=== PATIENT | male | born 1990 | race Caucasian/White ===

== ENCOUNTER 2016-12-04 11:49 | Emergency (ER) | payer SELFPAY ==
[~2016-12-04] VITALS: Ht 175.3 cm; Wt 86.2 kg
[~2016-12-04 11:49] MED LIST: AMOX500C2 PO; ANTI15DR4 LEFT EAR
--- NOTE | 2016-12-04 14:14 | ED Back Pain ---
General Chief Complaint: Back Problems Stated Complaint: BACK PAIN Nursing Triage Note: PT STATES HE HAS STARTED A DIFFERENT POSITION AT [employer] AND THIS PARTICULAR POSITION IS CAUSING HIM UPPER BACK PAIN. THEY WILL NOT LET HIM CHANGE WITHOUT A DR'S NOTE. PAIN IS ONLY HAPPENING WHILE HE IS A WORK. Nursing Sepsis Screen: No Definite Risk Source of Information: Patient Exam Limitations: No Limitations History of Present Illness Time Seen by Provider: 14:10 Initial Comments The patient is a 26 year-old white male who presents today with a complaint of back pain. The patient reports that he works at [employer]. He has been there for a month or slightly more. 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 This is caused him every day pain which is in the area of the left medial scapula. Timing/Duration: 1 Week Pain/Injury Location: Chest Method of Injury: Other Associated Symptoms: muscle spasms Allergies and Home Medications Allergies Coded Allergies: No Known Drug Allergies (Unverified , 06/12/11) Home Medications No Active Prescriptions or Reported Meds Constitutional: see HPI EENTM: no symptoms reported Respiratory: no symptoms reported Cardiovascular: no symptoms reported Gastrointestinal: no symptoms reported Genitourinary: no symptoms reported Musculoskeletal: see HPI Skin: no symptoms reported Psychiatric/Neurological: No Symptoms Reported Past Jxuevdu-Ermdup-Mdtglo Hx Patient Social History Alcohol Use: Occasionally Uses Recreational Drug Use: No Smoking Status: Never a Smoker Recent Foreign Travel: No Contact w/Someone Who Travel: No Recent Infectious Disease Expo: No Recent Hopitalizations: No Physical Abuse Screen: No Sexual Abuse: No Surgeries HX Surgeries: No Respiratory Hx Respiratory Disorders: No Cardiovascular Hx Cardiac Disorders: No Neurological Hx Neurological Disorders: No Reproductive System Hx Reproductive Disorders: No Genitourinary Hx Genitourinary Disorders: No Gastrointestinal Hx Gastrointestinal Disorders: No Musculoskeletal Hx Musculoskeletal Disorders: No Endocrine Hx Endocrine Disorders: No HEENT HX ENT Disorders: No Cancer Hx Cancer: No Psychosocial Hx Psychiatric Problems: No Physical Exam Vital Signs Vital Sign - Last 12Hours 12/04/16 12:14 Temp 98.0 Pulse 100 Resp 18 B/P 139/95 Pulse Ox 98 Capillary Refill : Less Than 3 Seconds General Appearance: Mild Distress HEENT: Normal ENT Inspection Neck: Normal Inspection Cardiovascular: Regular Rate, Rhythm No Edema No Gallop No JVD No Murmur Normal Peripheral Pulses Respiratory: Chest Non Tender Lungs Clear Normal Breath Sounds No Accessory Muscle Use No Respiratory Distress Accessory Muscle Use Gastrointestinal: Normal Bowel Sounds No Organomegaly No Pulsatile Mass Non Tender Soft Back: Normal Inspection Extremity: Normal Capillary Refill Normal Inspection Normal Range of Motion Non Tender No Calf Tenderness No Pedal Edema Calf Tenderness Neurologic/Psychiatric: Alert Oriented x3 No Motor/Sensory Deficits Normal Mood/Affect v[employer] II-XII Norm as Tested Abnormal Cerebellar Tests Skin: Normal Color Warm/Dry Cool Cyanosis Comments No evidence of scoliosis is noted. The patient evinces pain when palpated along the medial aspect of the scapula to the distal point. There is some pain to lifting with extended arms against the examiner's resistance Progress/Results/Core Measures Results/Orders My Orders Orders-SALINA GALLEGOS MD T-Spine 3v-Ap, Lat, Swimmers (12/04/16 14:08) Vital Signs/I&O Vital Sign - Last 12Hours 12/04/16 12:14 Temp 98.0 Pulse 100 Resp 18 B/P 139/95 Pulse Ox 98 Blood Pressure Mean: 110 Departure Communication Progress Notes 1443 by my interpretation I see no obvious abnormalities in the thoracic spine Impression Impression: Primary Impression: parascapular muscle spasm Disposition: 01 HOME, SELF-CARE Condition: Stable/Unchanged Departure-Patient Inst. Referrals: NO,LOCAL PHYSICIAN (PCP/Family) Primary Care Physician Patient Instructions: Muscle Strain (DC) Add. Discharge Instructions: All discharge instructions reviewed with patient and/or family. Voiced understanding. In addition to ibuprofen or naproxen try heat in the area and I have prescribed a muscle relaxant. Scripts [Flexeril] No Conflict Check10 Bid #[id number] Prov:SALINA GALLEGOS MD 12/04/16 SALINA GALLEGOS MD Dec 04, 2016 14:14
[2016-12-04] MEDS ORDERED: Flexeril (14:47)
--- NOTE | 2016-12-04 14:49 | Diagnostic Imaging Report ---
Exam: AP and lateral views of the thoracic spine. Indication: Back pain. Findings: The vertebral body heights are preserved. The alignment of the posterior spinal line is satisfactory. The paraspinal soft tissues appear unremarkable. Impression: Unremarkable exam. Dictated by: Dictated on workstation # [id number]
[2016-12-04 14:50] VITALS: BP 139/95
== END 2016-12-04 14:50 | disposition home or self-care (01) ==
LOC: EDUNIT# 11:49 → ER 11:52
DX: M62.838 Other muscle spasm (principal)
CPT/HCPCS: 72072

== ENCOUNTER 2021-02-19 16:06 | Emergency (ER) | payer SELFPAY ==
[~2021-02-19] VITALS: Ht 175 cm; Wt 90.0 kg
[~2021-02-19 16:06] MED LIST changes: +Flexeril
--- NOTE | 2021-02-19 16:16 | ED General ---
General Stated Complaint: ABD PAIN Source of Information: Patient Exam Limitations: No Limitations History of Present Illness Date Seen by Provider: Feb 19, 2021 Time Seen by Provider: 16:09 Initial Comments To ER with reports of suprapubic abdominal pain. It began this morning with some loose stools. No nausea or vomiting. Pain is about 2 out of 10 when in a semi-Fowlers position, states that it is quite a bit worse when he stands up straight. No dysuria. His boss was concerned that he might have appendicitis and referred him to the emergency room. He has no urinary symptoms. Timing/Duration: 1-2 Days Severity: Moderate Associated Systoms: Denies Symptoms Allergies and Home Medications Allergies Coded Allergies: No Known Drug Allergies (Unverified , 06/12/11) Home Medications [Flexeril] , 10 BID Prescribed by: SALINA GALLEGOS on 12/04/16 0558 Patient Home Medication List Home Medication List Reviewed: Yes Review of Systems Review of Systems Constitutional: see HPI EENTM: see HPI Respiratory: no symptoms reported Cardiovascular: no symptoms reported Gastrointestinal: abdominal pain, diarrhea Genitourinary: no symptoms reported Musculoskeletal: no symptoms reported Skin: no symptoms reported Psychiatric/Neurological: No Symptoms Reported Hematologic/Lymphatic: No Symptoms Reported Immunological/Allergic: no symptoms reported Past Phrxnxb-Qvxqkv-Rhlhpa Hx Patient Social History Recent Hopitalizations: No Past Medical History Reproductive Disorders: No Physical Exam Vital Signs Vital Signs - First Documented 02/19/21 16:20 Temp 36.2 Pulse 100 Resp 18 B/P (MAP) 142/57 (85) Pulse Ox 97 O2 Delivery Room Air Capillary Refill : Height, Weight, BMI Height: 5'9" Weight: 190lbs. oz. 86.307472wv; BMI Method:Stated General Appearance: No Apparent Distress, WD/WN Eyes: Bilateral Eye Normal Inspection, Bilateral Eye PERRL, Bilateral Eye EOMI HEENT: PERRL/EOMI, TMs Normal Neck: Full Range of Motion, Normal Inspection Respiratory: No Accessory Muscle Use, No Respiratory Distress Cardiovascular: Regular Rate, Rhythm, Normal Peripheral Pulses Gastrointestinal: Normal Bowel Sounds, Non Tender, Soft Neurologic/Psychiatric: Alert, Oriented x3 Skin: Normal Color, Warm/Dry Progress/Results/Core Measures Suspected Sepsis SIRS Temperature: Pulse: Respiratory Rate: Laboratory Tests 02/19/21 16:15: White Blood Count 6.9 Blood Pressure / Mean: Laboratory Tests 02/19/21 16:15: Creatinine 1.07, Platelet Count 263, Total Bilirubin 1.2H Results/Orders Lab Results Laboratory Tests Test 02/19/21 16:15 Range/Units White Blood Count 6.9 4.3-11.0 10^3/uL Red Blood Count 4.78 4.30-5.52 10^6/uL Hemoglobin 15.2 13.3-17.7 g/dL Hematocrit 44 40-54 % Mean Corpuscular Volume 91 80-99 fL Mean Corpuscular Hemoglobin 32 25-34 pg Mean Corpuscular Hemoglobin Concent 35 32-36 g/dL Red Cell Distribution Width 13.1 10.0-14.5 % Platelet Count 263 130-400 10^3/uL Mean Platelet Volume 10.6 9.0-12.2 fL Immature Granulocyte % (Auto) 0 % Neutrophils (%) (Auto) 70 42-75 % Lymphocytes (%) (Auto) 19 12-44 % Monocytes (%) (Auto) 9 0-12 % Eosinophils (%) (Auto) 2 0-10 % Basophils (%) (Auto) 0 0-10 % Neutrophils # (Auto) 4.8 1.8-7.8 10^3/uL Lymphocytes # (Auto) 1.3 1.0-4.0 10^3/uL Monocytes # (Auto) 0.6 0.0-1.0 10^3/uL Eosinophils # (Auto) 0.1 0.0-0.3 10^3/uL Basophils # (Auto) 0.0 0.0-0.1 10^3/uL Immature Granulocyte # (Auto) 0.0 0.0-0.1 10^3/uL Sodium Level 140 135-145 MMOL/L Potassium Level 3.7 3.6-5.0 MMOL/L Chloride Level 107 98-107 MMOL/L Carbon Dioxide Level 24 21-32 MMOL/L Anion Gap 9 5-14 MMOL/L Blood Urea Nitrogen 10 7-18 MG/DL Creatinine 1.07 0.60-1.30 MG/DL Estimat Glomerular Filtration Rate > 60 BUN/Creatinine Ratio 9 Glucose Level 117 H 70-105 MG/DL Calcium Level 9.0 8.5-10.1 MG/DL Corrected Calcium 8.5-10.1 MG/DL Total Bilirubin 1.2 H 0.1-1.0 MG/DL Aspartate Amino Transf (AST/SGOT) 27 5-34 U/L Alanine Aminotransferase (ALT/SGPT) 42 0-55 U/L Alkaline Phosphatase 66 40-136 U/L C-Reactive Protein High Sensitivity 1.06 H 0.00-0.50 MG/DL Total Protein 7.3 6.4-8.2 GM/DL Albumin 4.7 H 3.2-4.5 GM/DL My Orders Orders - JESSICA RYAN APRN Hs C Reactive Protein (02/19/21 16:13) Cbc With Automated Diff (02/19/21 16:13) Comprehensive Metabolic Panel (02/19/21 16:13) Ua Culture If Indicated (02/19/21 16:13) Ed Iv/Invasive Line Start (02/19/21 16:13) Ct Abd/Pelv W (Appendicitis) (02/19/21 16:43) Iohexol Injection (Omnipaque 350 Mg/Ml 1 (02/19/21 17:00) Received Contrast (Hold Metformin- Contr (02/19/21 17:00) Sodium Chloride Flush (Catheter Flush Sy (02/19/21 17:00) Ns (Ivpb) (Sodium Chloride 0.9% Ivpb Bag (02/19/21 17:00) Medications Given in ED Current Medications Medications Dose Ordered Sig/Lucinda Route Start Time Stop Time Status Last Admin Dose Admin Iohexol 100 ml ONCE ONCE IV 02/19/21 17:00 02/19/21 17:01 DC 02/19/21 17:07 100 ML Sodium Chloride 10 ml NEEDED PRN IV 02/19/21 17:00 02/19/21 17:07 10 ML Sodium Chloride 100 ml ONCE ONCE IV 02/19/21 17:00 02/19/21 17:01 DC 02/19/21 17:07 80 ML Vital Signs/I&O 02/19/21 16:20 Temp 36.2 Pulse 100 Resp 18 B/P (MAP) 142/57 (85) Pulse Ox 97 O2 Delivery Room Air Capillary Refill : Departure Impression Primary Impression: Colitis Disposition: 01 HOME, SELF-CARE Condition: Stable Departure-Patient Inst. Decision time for Depature: 17:20 Referrals: NO,LOCAL PHYSICIAN (PCP/Family) Primary Care Physician Patient Instructions: Colitis (DC) Work/School Note: Work Release Form Date Seen in the Emergency Department: Feb 19, 2021 Return to Work: Feb 21, 2021 JESSICA RYAN APRN Feb 19, 2021 16:16
[2021-02-19 16:26] LABS: BASOPHILS % (AUTO) 0 % (0-10); EOSINOPHILS # (AUTO) 0.1 10^3/uL (0.0-0.3); EOSINOPHILS % (AUTO) 2 % (0-10); HEMATOCRIT 44 % (40-54); HEMOGLOBIN 15.2 g/dL (13.3-17.7); LYMPHOCYTES # (AUTO) 1.3 10^3/uL (1.0-4.0); LYMPHOCYTES % (AUTO) 19 % (12-44); MEAN CORPUSCULAR HEMOGLOBIN 32 pg (25-34); MEAN CORPUSCULAR HGB CONC 35 g/dL (32-36); MEAN CORPUSCULAR VOLUME 91 fL (80-99); MEAN PLATELET VOLUME 10.6 fL (9.0-12.2); MONOCYTES # (AUTO) 0.6 10^3/uL (0.0-1.0); MONOCYTES % (AUTO) 9 % (0-12); NEUTROPHILS # (AUTO) 4.8 10^3/uL (1.8-7.8); NEUTROPHILS % (AUTO) 70 % (42-75); PLATELET COUNT 263 10^3/uL (130-400); WHITE BLOOD COUNT 6.9 10^3/uL (4.3-11.0)
[2021-02-19 16:35] LABS: ALBUMIN 4.7 GM/DL (3.2-4.5); CHLORIDE 107 MMOL/L (98-107); POTASSIUM 3.7 MMOL/L (3.6-5.0)
[2021-02-19 16:36] LABS: SODIUM 140 MMOL/L (135-145)
[2021-02-19 16:38] LABS: GLUCOSE 117 MG/DL (70-105); TOTAL PROTEIN 7.3 GM/DL (6.4-8.2)
[2021-02-19 16:39] LABS: CARBON DIOXIDE 24 MMOL/L (21-32)
[2021-02-19 16:40] LABS: BILIRUBIN,TOTAL 1.2 MG/DL (0.1-1.0)
[2021-02-19 16:42] LABS: ALKALINE PHOSPHATASE 66 U/L (40-136); CREATININE SERUM 1.07 MG/DL (0.60-1.30); GFR ESTIMATED > 60
[2021-02-19 16:43] LABS: BUN/CREATININE RATIO 9
[2021-02-19 16:45] LABS: ALANINE AMINOTRANSFERASE 42 U/L (0-55)
[2021-02-19] MEDS ORDERED: HOLD METFORMIN - RECEIVED CONTRAST 20 ML VIAL IV SCH (17:00)
[2021-02-19] MEDS ORDERED: NS 100 ML (IVPB) BAG IV ONE (17:00)
[2021-02-19] MEDS ORDERED: CATHETER FLUSH 10 ML SYR IV PRN (17:00)
[2021-02-19] MEDS ORDERED: IOHEXOL 350 MG/ML 100 ML (OMNIPAQUE 350) VIAL IV ONE (17:00)
--- NOTE | 2021-02-19 17:17 | Diagnostic Imaging Report ---
PROCEDURE: CT abdomen and pelvis with contrast, rule out appendicitis. TECHNIQUE: Multiple contiguous axial images were obtained through the abdomen and pelvis after the administration of intravenous contrast. All CT scans use one or more of the following dose optimizing techniques: automated exposure control, MA and/or KvP adjustment based on patient size and exam type or iterative reconstruction. INDICATION: Suprapubic pain and diarrhea. COMPARISON: No prior studies are available for comparison. FINDINGS: The lung bases are clear. Liver demonstrates some mild low density suggestive of hepatic steatosis. No masses detected. Gallbladder is unremarkable. There is no biliary ductal dilatation. Pancreas and spleen are unremarkable. No adrenal mass is detected. Kidneys are unremarkable. Aorta is nonaneurysmal. Small and large bowel loops are normal caliber. The appendix is visualized with clarity in the right lower quadrant. Appendix appears to be normal in caliber. No definite periappendiceal inflammation is identified. There does appear to be generalized colonic wall thickening suggestive of a nonspecific colitis. No discrete fluid collection or free air is identified. Bladder is unremarkable. IMPRESSION: 1. No CT evidence of acute appendicitis. 2. There is some generalized colonic wall thickening consistent with nonspecific colitis. Dictated by: Dictated on workstation # [id number]
[2021-02-19 17:46] VITALS: BP 142/57
== END 2021-02-19 17:47 | disposition home or self-care (01) ==
LOC: EDUNIT# 16:06 → ER 16:07
DX: K52.9 Noninfective gastroenteritis and colitis, unspecified (principal)
CPT/HCPCS: 36415; 74177; 80053; 85025; 86141

== ENCOUNTER 2021-06-16 23:44 | Emergency (ER) | payer SELFPAY ==
[~2021-06-16] VITALS: Ht 175.2 cm; Wt 95.0 kg
[2021-06-17] MEDS ORDERED: ASPIRIN 81 MG CHEW (CHILDREN'S ASA) PO ONE (00:15)
[2021-06-17 02:31] LABS: BASOPHILS % (AUTO) 0 % (0-10); EOSINOPHILS # (AUTO) 0.1 10^3/uL (0.0-0.3); EOSINOPHILS % (AUTO) 3 % (0-10); HEMATOCRIT 44 % (40-54); HEMOGLOBIN 15.5 g/dL (13.3-17.7); LYMPHOCYTES # (AUTO) 1.7 10^3/uL (1.0-4.0); LYMPHOCYTES % (AUTO) 35 % (12-44); MEAN CORPUSCULAR HEMOGLOBIN 33 pg (25-34); MEAN CORPUSCULAR HGB CONC 35 g/dL (32-36); MEAN CORPUSCULAR VOLUME 93 fL (80-99); MEAN PLATELET VOLUME 10.6 fL (9.0-12.2); MONOCYTES # (AUTO) 1.1 10^3/uL (0.0-1.0); MONOCYTES % (AUTO) 22 % (0-12); NEUTROPHILS % (AUTO) 40 % (42-75); PLATELET COUNT 220 10^3/uL (130-400); WHITE BLOOD COUNT 4.9 10^3/uL (4.3-11.0)
[2021-06-17 02:43] LABS: INR 1.1 (0.8-1.4); PROTHROMBIN TIME PATIENT 14.2 SEC (12.2-14.7)
[2021-06-17 02:59] LABS: ALANINE AMINOTRANSFERASE 36 U/L (0-55); ALBUMIN 4.6 GM/DL (3.2-4.5); ALKALINE PHOSPHATASE 58 U/L (40-136); AMYLASE 38 U/L (25-125); BILIRUBIN,TOTAL 1.1 MG/DL (0.1-1.0); BUN/CREATININE RATIO 9; CARBON DIOXIDE 24 MMOL/L (21-32); CHLORIDE 105 MMOL/L (98-107); CREATINE KINASE 286 U/L (30-200); GFR ESTIMATED 79; GLUCOSE 84 MG/DL (70-105); LIPASE 16 U/L (8-78); POTASSIUM 3.5 MMOL/L (3.6-5.0); SODIUM 140 MMOL/L (135-145); TOTAL PROTEIN 7.4 GM/DL (6.4-8.2)
[2021-06-17 03:06] LABS: CREATINE KINASE MB 1.1 NG/ML (<6.6)
[2021-06-17 03:07] LABS: ERYTHROCYTE SEDIMENTATION RATE 2 MM/HR (0-15)
[2021-06-17 03:31] LABS: EOSINOPHILS % (MANUAL) 4 %; LYMPHOCYTES % (MANUAL) 35 %; MONOCYTES % (MANUAL) 18 %; NEUTROPHILS % (MANUAL) 43 %
--- NOTE | 2021-06-17 03:33 | ED General ---
General Chief Complaint: Chest Pain Stated Complaint: CP,COUGH Nursing Triage Note: Pt ambulatory into ER with complaint of chest pain x1.5 hours, and fatigue x2 days. 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 Pt describes pain as a tightness with pain at a 3/10. Allergies and Home Medications Allergies Coded Allergies: No Known Drug Allergies (Unverified , 06/12/11) Home Medications [Flexeril] , 10 BID Prescribed by: SALINA GALLEGOS on 12/04/16 [id number] Past Ilzgfyn-Bjdzzs-Tqxcio Hx Patient Social History Tobacco Use?: No Use of E-Cig and/or Vaping dev: No Substance use?: No Alcohol Use?: Yes Alcohol type: Hard Liquor Alcohol Frequency: Daily Immunizations Up To Date Influenza Vaccine Up-to-Date: No; Not Current Past Medical History Surgeries: No Respiratory: No Cardiac: No Neurological: No Reproductive Disorders: No Gastrointestinal: No Musculoskeletal: No Endocrine: No Cancer: No Psychosocial: No Physical Exam Vital Signs Vital Signs - First Documented 06/16/21 23:58 Temp 36.8 Pulse 83 Resp 20 B/P (MAP) 136/107 (117) Pulse Ox 99 O2 Delivery Room Air Capillary Refill : Less Than 3 Seconds Height, Weight, BMI Height: 5'9" Weight: 190lbs. oz. 86.056703qd; 30.00 BMI Method:Stated Progress/Results/Core Measures Suspected Sepsis SIRS Temperature: Pulse: 83 Respiratory Rate: 20 Laboratory Tests 06/17/21 01:58: White Blood Count 4.9 Blood Pressure 136 /107 Mean: 117 Laboratory Tests 06/17/21 01:58: Creatinine 1.10, INR Comment 1.1, Platelet Count 220, Total Bilirubin 1.1H Results/Orders Lab Results Laboratory Tests Test 06/16/21 00:03 06/17/21 01:58 Range/Units SARS-CoV-2 RNA (RT-PCR) Not Detected Not Detecte White Blood Count 4.9 4.3-11.0 10^3/uL Red Blood Count 4.76 4.30-5.52 10^6/uL Hemoglobin 15.5 13.3-17.7 g/dL Hematocrit 44 40-54 % Mean Corpuscular Volume 93 80-99 fL Mean Corpuscular Hemoglobin 33 25-34 pg Mean Corpuscular Hemoglobin Concent 35 32-36 g/dL Red Cell Distribution Width 13.3 10.0-14.5 % Platelet Count 220 130-400 10^3/uL Mean Platelet Volume 10.6 9.0-12.2 fL Immature Granulocyte % (Auto) 0 % Neutrophils (%) (Auto) 40 L 42-75 % Lymphocytes (%) (Auto) 35 12-44 % Monocytes (%) (Auto) 22 H 0-12 % Eosinophils (%) (Auto) 3 0-10 % Basophils (%) (Auto) 0 0-10 % Neutrophils # (Auto) 2.0 1.8-7.8 10^3/uL Lymphocytes # (Auto) 1.7 1.0-4.0 10^3/uL Monocytes # (Auto) 1.1 H 0.0-1.0 10^3/uL Eosinophils # (Auto) 0.1 0.0-0.3 10^3/uL Basophils # (Auto) 0.0 0.0-0.1 10^3/uL Immature Granulocyte # (Auto) 0.0 0.0-0.1 10^3/uL Neutrophils % (Manual) 43 % Lymphocytes % (Manual) 35 % Monocytes % (Manual) 18 % Eosinophils % (Manual) 4 % Erythrocyte Sedimentation Rate 2 0-15 MM/HR Prothrombin Time 14.2 12.2-14.7 SEC INR Comment 1.1 0.8-1.4 Activated Partial Thromboplast Time 34 24-35 SEC Sodium Level 140 135-145 MMOL/L Potassium Level 3.5 L 3.6-5.0 MMOL/L Chloride Level 105 98-107 MMOL/L Carbon Dioxide Level 24 21-32 MMOL/L Anion Gap 11 5-14 MMOL/L Blood Urea Nitrogen 10 7-18 MG/DL Creatinine 1.10 0.60-1.30 MG/DL Estimat Glomerular Filtration Rate 79 BUN/Creatinine Ratio 9 Glucose Level 84 70-105 MG/DL Calcium Level 9.0 8.5-10.1 MG/DL Corrected Calcium 8.5-10.1 MG/DL Magnesium Level 2.0 1.6-2.4 MG/DL Total Bilirubin 1.1 H 0.1-1.0 MG/DL Aspartate Amino Transf (AST/SGOT) 24 5-34 U/L Alanine Aminotransferase (ALT/SGPT) 36 0-55 U/L Alkaline Phosphatase 58 40-136 U/L Total Creatine Kinase 286 H 30-200 U/L Creatine Kinase MB 1.1 <6.6 NG/ML Troponin I < 0.028 <0.028 NG/ML C-Reactive Protein High Sensitivity 0.11 0.00-0.50 MG/DL B-Type Natriuretic Peptide < 10.0 <100.0 PG/ML Total Protein 7.4 6.4-8.2 GM/DL Albumin 4.6 H 3.2-4.5 GM/DL Amylase Level 38 25-125 U/L Lipase 16 8-78 U/L My Orders Orders - PAM HEAD DO Covid 19 Inhouse Test (06/16/21 23:59) Ed Iv/Invasive Line Start (06/17/21 00:06) Ekg Tracing (06/17/21 00:06) Monitor-Rhythm Ecg Trace Only (06/17/21 00:06) Amylase (06/17/21 00:06) BNP (06/17/21 00:06) Cbc With Automated Diff (06/17/21 00:06) Comprehensive Metabolic Panel (06/17/21 00:06) Creatine Kinase (06/17/21 00:06) Creatine Kinase Mb (06/17/21 00:06) Hs C Reactive Protein (06/17/21 00:06) Lipase (06/17/21 00:06) Magnesium (06/17/21 00:06) Protime With Inr (06/17/21 00:06) Partial Thromboplastin Time (06/17/21 00:06) Erythrocyte Sedimentation Rate (06/17/21 00:06) Troponin I (06/17/21 00:06) Chest 1 View, Ap/Pa Only (06/17/21 00:06) Aspirin Chewable Tablet (Baby Aspirin Ch (06/17/21 00:15) Manual Differential (06/17/21 01:58) Medications Given in ED Current Medications Medications Dose Ordered Sig/Lucinda Route Start Time Stop Time Status Last Admin Dose Admin Aspirin 324 mg ONCE ONCE PO 06/17/21 00:15 06/17/21 00:16 DC 06/17/21 00:12 324 MG Vital Signs/I&O 06/16/21 06/16/21 23:58 23:58 Temp 36.8 Pulse 83 Resp 20 B/P (MAP) 136/107 (117) Pulse Ox 99 O2 Delivery Room Air Room Air Capillary Refill : Less Than 3 Seconds Blood Pressure Mean: 117 Departure Impression Primary Impression: Person under investigation for COVID-19 Additional Impression: Chest pain Disposition: HOME, SELF-CARE Condition: Stable Departure-Patient Inst. Decision time for Depature: 03:32 Referrals: NO,LOCAL PHYSICIAN (PCP/Family) Primary Care Physician Patient Instructions: Chest Pain (DC), Preventing the Spread of an Infectious Disease, COVID-19 Tests Add. Discharge Instructions: QUARANTINE FOR THE NEXT 2 WEEKS YOU NEED TO BE RE-TESTED FOR COVID-19 IN THE NEXT 2-3 DAYS--[facility] TESTING TYLENOL AND MOTRIN NEEDED FOR PAIN LOTS OF CLEAR LIQUIDS NO ALCOHOL All discharge instructions reviewed with patient and/or family. Voiced understanding. PAM HEAD DO Jun 17, 2021 03:33
[2021-06-17 03:35] VITALS: BP 139/107
--- NOTE | 2021-06-17 07:14 | Diagnostic Imaging Report ---
EXAM: CHEST 1 VIEW, AP/PA ONLY INDICATION: Chest pain. Cough. Congestion. COMPARISON: None. FINDINGS: Normal heart size and pulmonary vascularity. No dense consolidation, pleural effusion or pneumothorax. No acute osseous findings. IMPRESSION: No acute cardiopulmonary findings. Dictated by: Dictated on workstation # [id number]
== END 2021-06-17 03:37 | disposition home or self-care (01) ==
LOC: EDUNIT# 23:44 → ER 23:48
DX: R07.9 Chest pain, unspecified (principal); Z20.822 Contact with and (suspected) exposure to COVID-19
CPT/HCPCS: 36415; 71045; 80053; 82150; 82550; 82553; 83690; 83735; 83880; 84484; 85007; 85027; 85610; 85652; 85730; 86141; 87636; 93005; 93041